=== PATIENT | male | born 1970 | race African-American/Black ===

== ENCOUNTER 2022-01-25 08:14 | Emergency (ER) | payer MEDICAID ==
[~2022-01-25] VITALS: Ht 167.6 cm; Wt 82.0 kg
[2022-01-25] MEDS ORDERED: IBUPROFEN 600MG TABLET PO ONE (09:00)
[2022-01-25] MEDS ORDERED: HYDROCODONE/ACETAMINOPHEN 5/325MG TABLET PO ONE (09:00)
[2022-01-25] MEDS ORDERED: ONDANSETRON HCL 4MG/2ML INJ IV ONE (12:00)
[2022-01-25] MEDS ORDERED: SODIUM CHLORIDE 0.9% 1,000 ML IV ONE (12:00)
[2022-01-25] MEDS ORDERED: ETOMIDATE 2MG/ML 10ML VIAL IV ONE (12:00)
[2022-01-25] MEDS ORDERED: PROPOFOL 200MG/20ML VIAL IV ONE (16:15)
[2022-01-25] MEDS ORDERED: MORPHINE SULFATE 4 MG/ML CPJ (NOT FOR IM USE) IV ONE (17:15)
[2022-01-25] MEDS ORDERED: HYDR-4001 MT (19:52)
[2022-01-25] MEDS ORDERED: IBUP-2028 MT (19:52)
[2022-01-25 20:46] VITALS: BP 150/92
== END 2022-01-25 21:18 | disposition home or self-care (01) ==
LOC: ER 08:14
DX: S52.592A Other fractures of lower end of left radius, initial encounter for closed fracture (principal); S52.692A Other fracture of lower end of left ulna, initial encounter for closed fracture; M25.552 Pain in left hip; M79.632 Pain in left forearm; R06.02 Shortness of breath; R94.31 Abnormal electrocardiogram [ECG] [EKG]; W13.2XXA Fall from, out of or through roof, initial encounter; Y93.89 Activity, other specified; Y92.017 Garden or yard in single-family (private) house as the place of occurrence of the external cause; F17.210 Nicotine dependence, cigarettes, uncomplicated; Z71.6 Tobacco abuse counseling
CPT/HCPCS: 71045; 73070; 73080; 73090; 73100; 73502; 93005; 96361; 96374; 96375; 99152; 99285; 99406; J2270; J2405; J2704; J3490; J7030